=== PATIENT | male | born 2000 | race Two or more races ===

== ENCOUNTER 2023-08-22 16:55 | Emergency (ER) | payer OTHER ==
[~2023-08-22] VITALS: Ht 177.8 cm; Wt 104.3 kg
[2023-08-22] MEDS ORDERED: PEPCID20 MG PO (18:19)
[2023-08-22] MEDS ORDERED: ACETAMINOPHEN 500 MG GEL..CAP PO ONE (18:45)
[2023-08-22] MEDS ORDERED: GUAIFENESIN/DEXTROMETHORPHAN 100 MG/5 ML ML PO ONE (18:45)
[2023-08-22 19:09] LABS: HEMATOCRIT 43.7 % (39.0-48.0); MEAN CELL VOLUME 85.6 fL (80.0-100.00); MEAN CORPUSCULAR HEMOGLOBIN 29.3 pg (27.00-32.0); MEAN CORPUSCULAR HGB CONC 34.2 g/dl (32.0-36.0); PLATELET COUNT 199 K/uL (150-450); RED BLOOD COUNT 5.11 M/uL (4.00-6.00); RED CELL DISTRIBUTION WIDTH 14.1 % (11.5-14.5)
[2023-08-22] MEDS ORDERED: COUGH & CHEST177 ML PO (20:20)
[2023-08-22] MEDS ORDERED: OSEL75CA PO (20:20)
[2023-08-22] MEDS ORDERED: OSELTAMIVIR PHOSPHATE 75 MG CAPSULE PO ONE (20:30)
== END 2023-08-22 20:28 | disposition home or self-care (01) ==
LOC: ER 16:55
PROVIDERS: Nurse Practitioner Family
DX: J10.1 Influenza due to other identified influenza virus with other respiratory manifestations (principal); R53.81 Other malaise; E16.1 Other hypoglycemia; Z20.822 Contact with and (suspected) exposure to COVID-19